=== PATIENT | male | born 1965 | race African-American/Black ===

== ENCOUNTER 2023-10-17 14:40 | Inpatient (IN) ==
[2023-10-17 17:00] LABS: Venous Bicarbonate HCO3 24.2 mmol/L (24-28)
[2023-10-17] MEDS: NS 0.9% 1000 ml BAG 1,000 ML IV ONE (17:01)
[2023-10-17 17:03] LABS: ABS Basophils 0.1 10^3/uL (0.0-0.1); ABS Eosinophils 0.1 10^3/uL (0.0-0.5); ABS Lymphocytes 1.8 10^3/uL (1.0-4.8); ABS Monocytes 0.7 10^3/uL (0.0-1.1); ABS Nucleated RBC 0.05 10^3/ul; Eosinophil % 1.3 %; Hematocrit 27.3 % (38-53); Hemoglobin 9.2 g/dL (13.2-16.3); Lymphocyte % 26.8 %; Mean Corpuscular Hemoglobin 32.8 pg (27-33); Mean Corpuscular Hgb Conc 33.8 g/dL (31-36); Mean Corpuscular Volume 97.1 fL (80-97); Mean Platelet Volume 8.8 fL (7.5-11.2); Nucleated Red Blood Cells % 0.8 %/100WBC (0.0-0.8); Platelet Count 260 10^3/uL (150-450); Red Blood Count 2.81 10^6/uL (4.06-5.63); Red Cell Distribution Width 15.5 % (12-17); White Blood Count 6.6 10^3/uL (3.6-10.2)
[2023-10-17 17:12] LABS: Activated Partial Thrombo Time 31.8 seconds (26.0-38.0); INR 1.35 (0.83-1.13)
[2023-10-17 17:39] LABS: Albumin/Globulin Ratio 0.9 (1-3); C Reactive Protein 43.83 mg/L (<8.01); Calcium 8.2 mg/dL (8.6-10.3); Creatinine, Serum 1.57 mg/dL (0.67-1.17); Globulin 3.2 g/dL (2-4); Potassium 4.3 mmol/L (3.5-5.0); Total Bilirubin 0.3 mg/dL (0.2-1.0); Total Protein 6.2 g/dL (6.4-8.9); eGFR CKD-EPI 50.5 (>60)
[2023-10-17 18:51] LABS: Urine Appearance Clear; Urine Bilirubin Negative (Negative); Urine Blood Negative (Negative); Urine Color Colorless; Urine Glucose Negative (Negative); Urine Ketones Negative (Negative); Urine Nitrite Negative (Negative); Urine Protein Negative (Negative); Urine Specific Gravity 1.008 (1.002-1.030); Urine Urobilinogen Negative (Negative)
[2023-10-17] MEDS: Iodixanol (CONTRAST) 320 MG/ML 100 ML SDV IV ONE (19:18)
[2023-10-17 19:41] LABS: High Sensitivity Troponin 1 Hr 30 pg/mL (<20)
[2023-10-17] MEDS ORDERED: Albuterol HFA INHALER 8 gm MDI INH PRN (23:17)
[2023-10-18] MEDS: Enoxaparin 40 MG/0.4 ML SYR SUBCUT SCH (00:54)
[2023-10-18] MEDS: Polyethylene Glycol 3350 17 GM PACKET PO ONE (00:55)
[2023-10-18 01:17] LABS: Calcium 8.7 mg/dL (8.6-10.3); Creatinine, Serum 1.29 mg/dL (0.67-1.17); Potassium 4.1 mmol/L (3.5-5.0); eGFR CKD-EPI 63.9 (>60)
[2023-10-18 02:23] LABS: High Sensitivity Troponin 3 Hr 23 pg/mL (<20)
[2023-10-18] MEDS: Tiotropium Brom/Olodaterol MDI (ACUTE) INH SCH (08:11)
[2023-10-18] MEDS: Potassium Chlor 20 meq TAB.ER PO SCH (10:07)
[2023-10-18] MEDS: Senna TAB 8.6 mg TAB PO PRN (10:07)
[2023-10-18] MEDS: Cyanocobalamin INJ 1,000 MCG/ML VIAL 1 ML VIAL IM ONE (12:34)
[2023-10-19 05:41] LABS: Hematocrit 30.5 % (38-53); Hemoglobin 10.2 g/dL (13.2-16.3); Mean Corpuscular Hemoglobin 32.6 pg (27-33); Mean Corpuscular Hgb Conc 33.6 g/dL (31-36); Mean Platelet Volume 9.1 fL (7.5-11.2); Platelet Count 255 10^3/uL (150-450); Red Blood Count 3.14 10^6/uL (4.06-5.63); Red Cell Distribution Width 15.1 % (12-17); White Blood Count 7.5 10^3/uL (3.6-10.2)
[2023-10-19 06:19] LABS: Calcium 8.3 mg/dL (8.6-10.3); Creatinine, Serum 0.8 mg/dL (0.67-1.17); Magnesium 1.3 mg/dL (1.9-2.7); Potassium 4.7 mmol/L (3.5-5.0); eGFR CKD-EPI 101.9 (>60)
[2023-10-19 06:34] LABS: TSH Ultra Thyroid Stim Horm 3.35 mcIU/mL (0.34-5.60)
[2023-10-19 06:41] LABS: Ferritin 222.8 ng/mL (24-336)
[2023-10-19 06:45] LABS: Folate 9.15 ng/mL (5.90-24.80)
[2023-10-19] MEDS: Cyanocobalamin INJ 1,000 MCG/ML VIAL 1 ML VIAL IM SCH (10:37)
[2023-10-19] MEDS: Furosemide 20 mg/2 ml IV VIAL IV ONE (11:35)
[2023-10-20 06:20] LABS: Calcium 8.2 mg/dL (8.6-10.3); Creatinine, Serum 0.89 mg/dL (0.67-1.17); Magnesium 1.3 mg/dL (1.9-2.7); Potassium 4.1 mmol/L (3.5-5.0); eGFR CKD-EPI 98.7 (>60)
[2023-10-20 06:31] LABS: Hematocrit 29.3 % (38-53); Hemoglobin 9.7 g/dL (13.2-16.3); Mean Corpuscular Hemoglobin 32.3 pg (27-33); Mean Corpuscular Volume 97.7 fL (80-97); Mean Platelet Volume 9.1 fL (7.5-11.2); Platelet Count 252 10^3/uL (150-450); Red Cell Distribution Width 15.7 % (12-17); White Blood Count 8.2 10^3/uL (3.6-10.2)
[2023-10-20] MEDS ORDERED: Lubiprostone 24 MCG CAP (NF) PO SCH (10:00)
[2023-10-20] MEDS: Polyethylene Glycol 3350 17 GM PACKET PO SCH (10:47)
[2023-10-20] MEDS: Furosemide 40 mg/4 ml IV VIAL IV ONE (10:47)
[2023-10-20] MEDS: Senna TAB 8.6 mg TAB PO SCH (11:11)
[2023-10-20] MEDS: Methylnaltrexone 150 MG TAB PO SCH (12:00)
[2023-10-20] MEDS: Magnesium Sulf 4 GM/100 ML IV 4,000 MG/100 ML BAG IVPB ONE (12:13)
[2023-10-20 13:49] VITALS: BP 133/100
[2023-10-20] MEDS: Ferric Gluconate IV 250 MG in NS 0.9% 250 ml 200 ML IVPB ONE (15:37)
[2023-10-20] MEDS ORDERED: Magnesium Hydroxide LIQ 30 ML UDC PO SCH (21:00)
[2023-10-20] MEDS ORDERED: Polyethylene Glycol 3350 17 GM PACKET PO SCH (21:00)
== END 2023-10-20 18:40 | disposition home or self-care (01) | DRG 385 ==
LOC: EDHOLD 14:40 → ED 14:40 → SUATTDRO 22:45 → MEDTELE 23:13
PROVIDERS: ADMIT Internal Medicine; ATTEND Student in an Organized Health Care Education/Training Program

== ENCOUNTER 2023-12-26 13:32 | Observation (INO) ==
[2023-12-26 15:52] LABS: Urine Appearance Clear; Urine Bilirubin Negative (Negative); Urine Blood Negative (Negative); Urine Color Colorless; Urine Glucose Negative (Negative); Urine Ketones Negative (Negative); Urine Nitrite Negative (Negative); Urine Protein Negative (Negative); Urine Specific Gravity 1.009 (1.002-1.030); Urine Urobilinogen Negative (Negative); Urine pH 5.5 (5.0-8.0)
[2023-12-26] MEDS: Morphine 4 MG/ML VIAL (1 ml) IV ONE (17:11)
[2023-12-26 17:13] LABS: ABS Basophils 0.1 10^3/uL (0.0-0.1); ABS Eosinophils 0.3 10^3/uL (0.0-0.5); ABS Lymphocytes 2.3 10^3/uL (1.0-4.8); ABS Monocytes 0.6 10^3/uL (0.0-1.1); ABS Neutrophils 4.4 10^3/uL (1.5-7.6); ABS Nucleated RBC 0.02 10^3/ul; Eosinophil % 3.6 %; Hematocrit 31.4 % (38-53); Hemoglobin 10.4 g/dL (13.2-16.3); Lymphocyte % 30.3 %; Mean Corpuscular Hemoglobin 31.6 pg (27-33); Mean Corpuscular Hgb Conc 33.2 g/dL (31-36); Mean Corpuscular Volume 95.1 fL (80-97); Mean Platelet Volume 9.2 fL (7.5-11.2); Nucleated Red Blood Cells % 0.3 %/100WBC (0.0-0.8); Platelet Count 218 10^3/uL (150-450); Red Cell Distribution Width 15.9 % (12-17); White Blood Count 7.6 10^3/uL (3.6-10.2)
[2023-12-26 17:43] LABS: Activated Partial Thrombo Time 50.2 seconds (26.0-38.0); INR 1.18 (0.83-1.13)
[2023-12-26 18:23] LABS: Albumin 3.2 g/dL (3.2-5.2); Albumin/Globulin Ratio 0.9 (1-3); C Reactive Protein 6.15 mg/L (<8.01); Calcium 8.5 mg/dL (8.6-10.3); Creatinine, Serum 1.15 mg/dL (0.67-1.17); Globulin 3.5 g/dL (2-4); Total Bilirubin 0.3 mg/dL (0.2-1.0); Total Protein 6.7 g/dL (6.4-8.9); eGFR CKD-EPI 73.3 (>60)
[2023-12-26] MEDS: Lactated Ringers 1000 ml BAG 1,000 ML IV ONE (18:32)
[2023-12-26 18:34] LABS: High Sensitivity Troponin 1 Hr 5 pg/mL (<20)
[2023-12-26] MEDS ORDERED: Naloxone Nasal Spray 4 MG/0.1 ML NASAL.SPR INTRANASAL PRN (19:50)
[2023-12-26] MEDS ORDERED: Senna TAB 8.6 mg TAB PO PRN (19:50)
[2023-12-26] MEDS ORDERED: Albuterol HFA INHALER 8 gm MDI INH PRN (19:50)
[2023-12-26] MEDS ORDERED: Ondansetron 4 mg VIAL 2 MG/ML 2 ml VIAL IV PRN (20:14)
[2023-12-27] MEDS: Sodium Phosphate ADULT ENEMA 133 ML BTL PR ONE (01:57)
[2023-12-27] MEDS: Lactated Ringers 1000 ml BAG 500 ML IV ONE (04:16)
[2023-12-27 07:50] LABS: ABS Basophils 0.1 10^3/uL (0.0-0.1); ABS Eosinophils 0.3 10^3/uL (0.0-0.5); ABS Lymphocytes 1.9 10^3/uL (1.0-4.8); ABS Monocytes 0.7 10^3/uL (0.0-1.1); ABS Neutrophils 4.1 10^3/uL (1.5-7.6); ABS Nucleated RBC 0.02 10^3/ul; Eosinophil % 4.3 %; Hematocrit 29.5 % (38-53); Hemoglobin 9.9 g/dL (13.2-16.3); Lymphocyte % 27.1 %; Mean Corpuscular Hemoglobin 31.6 pg (27-33); Mean Corpuscular Hgb Conc 33.4 g/dL (31-36); Mean Corpuscular Volume 94.6 fL (80-97); Nucleated Red Blood Cells % 0.3 %/100WBC (0.0-0.8); Platelet Count 205 10^3/uL (150-450); Red Blood Count 3.12 10^6/uL (4.06-5.63); Red Cell Distribution Width 16.6 % (12-17); White Blood Count 7.1 10^3/uL (3.6-10.2)
[2023-12-27 08:32] LABS: Calcium 8.2 mg/dL (8.6-10.3); Creatinine, Serum 0.84 mg/dL (0.67-1.17); Magnesium 1.4 mg/dL (1.9-2.7); Phosphorus 4.2 mg/dL (2.5-5.0); Potassium 4.1 mmol/L (3.5-5.0); eGFR CKD-EPI 100.5 (>60)
[2023-12-27] MEDS: Lidocaine PATCH 5% PATCH TRANSDERM SCH (09:09)
[2023-12-27] MEDS: Potassium Chlor 20 meq TAB.ER PO SCH (09:09)
[2023-12-27] MEDS: Aspirin EC 81 mg TAB.EC (enteric coated) PO SCH (09:10)
[2023-12-27] MEDS: Magnesium Sulf 4 GM/100 ML IV 4,000 MG/100 ML BAG IVPB ONE (09:17)
[2023-12-27] MEDS ORDERED: Senna TAB 8.6 mg TAB PO PRN (10:15)
[2023-12-27 14:41] VITALS: BP 107/62
[2023-12-27] MEDS: Tiotropium Brom/Olodaterol MDI (ACUTE) INH SCH (14:50)
[2023-12-27] MEDS ORDERED: Polyethylene Glycol 3350 17 GM PACKET PO SCH (21:00)
== END 2023-12-27 14:33 | disposition home or self-care (01) ==
LOC: ED 13:32 → EDHOLD 13:32
PROVIDERS: ADMIT Internal Medicine; ATTEND Internal Medicine